=== PATIENT | female | born 1990 | race American Indian/Alaskan Native ===

== ENCOUNTER 2018-07-20 09:59 | Emergency (ER) | payer OTHER ==
[2018-07-20 10:06] VITALS: BP 136/94
[2018-07-20] MEDS ORDERED: DECADRON PO ONE (11:03)
[2018-07-20] MEDS ORDERED: DUONEB *Not for PRN Use IH ONE (11:03)
--- NOTE | 2018-07-20 11:25 | Emergency Department Report ---
HPI - General Chief Complaint: Dyspnea/Respdistress Time Seen by Provider: 07/20/18 10:27 - HPI HPI: 28-year-old female presents to the emergency department with a complaint of a one to 2 day history of some wheezing, dry cough, upper body and/or torso body aches. Patient says that she was recently seen at her primary care physician's office and diagnosed with a stomach bug but those symptoms resolved prior to these symptoms starting. She has a history of asthma. She has not taken anything for her symptoms prior to presentation. She denies any tobacco or illicit drug use. No recent travel or sick contacts at home. ED Past Medical Hx - Past Medical History Previous Medical History?: Yes Hx Asthma: Yes - Surgical History Past Surgical History?: No - Social History Smoking Status: Never Smoker Substance Use Type: None - Medications Home Medications: Home Medications Medication Instructions Recorded Confirmed Last Taken Type HYDROcodone/APAP 10-325 [[place] 1 each PO Q6HR PRN #16 tablet 10/08/14 Unknown Rx 10/325] Sulfamethoxazole/Trimethoprim 1 each PO Q12H #20 tablet 10/08/14 Unknown Rx [Bactrim Ds] ALBUTEROL Inhaler (OR & NICU) 2 puff IH QID PRN #1 inhalation 07/20/18 Unknown Rx [ProAir HFA Inhaler] Benzonatate [Tessalon Perles] 100 mg PO Q8HR PRN #20 capsule 07/20/18 Unknown Rx ED Review of Systems ROS: Stated complaint: HARD TO BREATH Other details as noted in HPI Comment: All other systems reviewed and negative Constitutional: denies: chills, fever Eyes: denies: eye pain, vision change ENT: denies: ear pain, throat pain Respiratory: cough, wheezing Cardiovascular: denies: chest pain, edema Gastrointestinal: denies: abdominal pain, vomiting Genitourinary: denies: dysuria, frequency Musculoskeletal: myalgia. denies: joint swelling Skin: denies: rash, lesions Neurological: denies: headache, weakness Physical Exam - Physical Exam Vital Signs: Vital Signs 07/20/18 10:05 Temperature 97.8 F Pulse Rate 78 Respiratory 18 Rate Blood Pressure 136/94 O2 Sat by Pulse 99 Oximetry Physical Exam: GENERAL: The patient is well-developed well-nourished. HEENT: Normocephalic. Atraumatic. Patient has moist mucous membranes. EYES: Extraocular motions are intact. NECK: Supple. Trachea is midline. CHEST/LUNGS: Mild expiratory wheezing. No tachypnea or accessory muscle use. A dry cough heard during examination. There is no respiratory distress noted. HEART/CARDIOVASCULAR: Regular. There is no tachycardia. There is no obvious murmur. ABDOMEN: Abdomen is soft, nontender. Patient has normal bowel sounds. Obese habitus. SKIN: Skin is warm and dry. NEURO: The patient is awake, alert, and oriented. The patient is cooperative. The patient has no focal neurologic deficits. The patient has normal speech. MUSCULOSKELETAL: There is no tenderness or deformity. There is no evidence of acute injury. ED Course Vital Signs 07/20/18 10:05 Temperature 97.8 F Pulse Rate 78 Respiratory 18 Rate Blood Pressure 136/94 O2 Sat by Pulse 99 Oximetry ED Medical Decision Making - Radiology Data Radiology results: image reviewed interpreted by me: Chest x-ray does not show any pneumothorax, pleural effusion, pneumonia or obvious focal consolidation. - Medical Decision Making Patient presents with a 2 day history of some shortness of breath, wheezing, upper body aches a few days after being diagnosed with a viral gastroenteritis. She has some mild wheezing but no signs of any tachypnea or respiratory distress. Chest x-ray does not show any focal consolidation, pneumothorax, pneumonia, pleural effusions or any other acute process. She was given a dose of Decadron and a breathing treatment and upon reevaluation she is feeling improved. She'll be discharged home with something for her cough and an albuterol inhaler. She will return to the ER with any worsening of her symptoms or any acute distress. - Differential Diagnosis asthma, bronchitis, pneumonia, URI Critical Care Time: No Critical care attestation.: If time is entered above; I have spent that time in minutes in the direct care of this critically ill patient, excluding procedure time. ED Disposition Clinical Impression: Bronchospasm, Body aches Upper respiratory infection Qualifiers: URI type: unspecified URI Qualified Code(s): J06.9 - Acute upper respiratory infection, unspecified Disposition: DC-01 TO HOME OR SELFCARE Is pt being admited?: No Condition: Stable Instructions: Upper Respiratory Infection (ED), Bronchospasm (ED) Additional Instructions: Please follow-up with your primary care physician in the next few days. Return to the emergency Department with any worsening of your symptoms or any acute distress. Prescriptions: ALBUTEROL Inhaler (OR & NICU) [ProAir HFA Inhaler] 2 puff IH QID PRN #1 inhalation PRN Reason: Shortness Of Breath Benzonatate [Tessalon Perles] 100 mg PO Q8HR PRN #20 capsule PRN Reason: Cough Referrals: PRIMARY CARE, [Primary Care Provider] - 2-3 Days Time of Disposition: 13:03
--- NOTE | 2018-07-20 12:37 | XRay Report ---
PROCEDURE: XR CHEST ROUTINE 2V TECHNIQUE: PA and lateral views of the chest HISTORY: cough COMPARISONS: None available FINDINGS: Cardiomediastinal silhouette is within normal limits. No pulmonary infiltrates are seen. No effusion or pneumothorax IMPRESSION: No pulmonary infiltrates are identified. This document is electronically signed by Perla Russo MD., July 20 2018 12:35:31 PM ET
== END 2018-07-20 13:20 | disposition home or self-care (01) ==
LOC: ED 09:59
DX: J98.01 Acute bronchospasm (principal); J06.9 Acute upper respiratory infection, unspecified
CPT/HCPCS: 71046; 94640; 99283; J8540